=== PATIENT | male | born 1945 | race Caucasian/White ===

== ENCOUNTER → 2016-10-19 | Outpatient (CLI) | payer MEDICARE ==
[~2016-10-19] MED LIST: FENO145T13 PO; LISI-167 PO; MULT-26 PO; OMNIPAQUE 350 MG/ML, 100ML BOTTLE ONE; SIMV40TA3 PO; TAMS0.4C2 PO; VITAMIN D PO
== END | disposition home or self-care (01) ==
LOC: CFH 10:50
PROVIDERS: ATTEND Internal Medicine Hematology & Oncology
DX: R91.1 Solitary pulmonary nodule (principal); N62 Hypertrophy of breast; J43.2 Centrilobular emphysema; I70.0 Atherosclerosis of aorta; Z90.49 Acquired absence of other specified parts of digestive tract; Z85.048 Personal history of other malignant neoplasm of rectum, rectosigmoid junction, and anus
CPT/HCPCS: 71260; 74177; Q9967

== ENCOUNTER → 2017-10-19 | Outpatient (CLI) | payer MEDICARE ==
[~2017-10-19] MED LIST changes: -FENO145T13 PO; +FENO145T30 PO
== END ==
LOC: CFH 10:57
PROVIDERS: ATTEND Internal Medicine Hematology & Oncology
DX: C20 Malignant neoplasm of rectum (principal); I70.8 Atherosclerosis of other arteries; I70.0 Atherosclerosis of aorta; I77.811 Abdominal aortic ectasia; R91.1 Solitary pulmonary nodule; Z90.49 Acquired absence of other specified parts of digestive tract
CPT/HCPCS: 71260; 74177; Q9967

== ENCOUNTER → 2018-10-25 | Outpatient (CLI) | payer MEDICARE | END | disposition home or self-care (01) | LOC: CFH 08:19 | PROVIDERS: ATTEND Internal Medicine Hematology & Oncology | DX: C20 Malignant neoplasm of rectum (principal); R22.2 Localized swelling, mass and lump, trunk | CPT/HCPCS: 71260; 74177; Q9967 ==

== ENCOUNTER 2018-12-22 10:37 | Outpatient (CLI) | payer MEDICARE ==
[~2018-12-22 10:37] MED LIST changes: -OMNIPAQUE 350 MG/ML, 100ML BOTTLE ONE
[2018-12-22 11:55] LABS: BASOPHILS # (AUTO) 0.03 x10^3/uL (0-0.1); BASOPHILS % (AUTO) 1 % (0-1); EOSINOPHILS # (AUTO) 0.23 x10^3/uL (0-0.4); EOSINOPHILS % (AUTO) 4 % (1-7); LYMPHOCYTES # (AUTO) 1.23 x10^3/uL (1-3.4); LYMPHOCYTES % (AUTO) 21 % (22-44); MD NO; MEAN CORPUSCULAR HEMOGLOBIN 33.4 pg (27.5-34.5); MEAN CORPUSCULAR HGB CONC 33.6 g/dL (33.2-36.2); MEAN CORPUSCULAR VOLUME 99.4 fL (81-97); MEAN PLATELET VOLUME 9.9 fL (7.4-10.4); MONOCYTES # (AUTO) 0.46 x10^3/uL (0.2-0.8); MONOCYTES % (AUTO) 8 % (2-9); NEUTROPHILS # (AUTO) 3.93 x10^3/uL (1.8-6.8); NEUTROPHILS % (AUTO) 67 % (42-75); PLATELET COUNT 175 x10^3/uL (130-400); RED BLOOD COUNT 4.14 x10^6/uL (4.38-5.82); RED CELL DISTRIBUTION WIDTH 13.6 % (9.4-14.8)
[2018-12-22] MEDS ORDERED: B CO1TAB14 PO (12:02)
[2018-12-22] MEDS ORDERED: GEMF600T8 PO (12:02)
[2018-12-22] MEDS ORDERED: Ester C PO (12:02)
[2018-12-22] MEDS ORDERED: CLOP75TA PO (12:02)
[2018-12-22] MEDS ORDERED: UMEC1DIS IH (12:02)
[2018-12-22] MEDS ORDERED: CYAN25009 PO (12:02)
[2018-12-22] MEDS ORDERED: CHOL500015 PO (12:02)
[2018-12-22] MEDS ORDERED: ASPI-496 PO (12:02)
[2018-12-22] MEDS ORDERED: ALPH100C PO (12:02)
[2018-12-22] MEDS ORDERED: UBID100C41 PO (12:02)
[2018-12-22] MEDS ORDERED: ATOR40TA78 PO (12:02)
[2018-12-22] MEDS ORDERED: FOLI0.4T2 PO (12:02)
[2018-12-22] MEDS ORDERED: ACET500C7 PO (12:02)
[2018-12-22 12:08] LABS: ALBUMIN 3.7 g/dL (3.4-5.0); ANION GAP 4 mmol/L (5-15); CALCIUM 8.8 mg/dL (8.5-10.1); CHLORIDE 110 mmol/L (98-107)
[2018-12-22 12:16] LABS: ALANINE AMINOTRANSFERASE 22 U/L (12-78); ALKALINE PHOSPHATASE 67 U/L (45-117); BILIRUBIN,TOTAL 0.4 mg/dL (0.2-1.0); CREATININE 0.97 mg/dL (0.7-1.3)
== END 2018-12-22 23:59 | disposition home or self-care (01) ==
LOC: STAR 10:37
PROVIDERS: ATTEND Surgery Vascular Surgery
DX: Z01.818 Encounter for other preprocedural examination (principal); I65.22 Occlusion and stenosis of left carotid artery
CPT/HCPCS: 36415; 80053; 85025; 93005

== ENCOUNTER 2018-12-26 06:01 | Inpatient (IN) | payer MEDICARE ==
[~2018-12-26] VITALS: Ht 175.3 cm; Wt 84.5 kg
[2018-12-26 06:32] VITALS: BP 123/59
== END 2018-12-26 11:15 | disposition home or self-care (01) | DRG 983 ==
LOC: ORIP 06:01
PROVIDERS: ADMIT Surgery Vascular Surgery; ATTEND Surgery Vascular Surgery
PROC: 03JY0ZZ Inspection of Upper Artery, Open Approach (ICD-10-PCS; principal; 2018-12-26)
DX: I65.22 Occlusion and stenosis of left carotid artery (principal); J44.9 Chronic obstructive pulmonary disease, unspecified; Z86.73 Personal history of transient ischemic attack (TIA), and cerebral infarction without residual deficits; E78.00 Pure hypercholesterolemia, unspecified; I10 Essential (primary) hypertension; Z90.49 Acquired absence of other specified parts of digestive tract; Z82.49 Family history of ischemic heart disease and other diseases of the circulatory system; I73.9 Peripheral vascular disease, unspecified; Z85.048 Personal history of other malignant neoplasm of rectum, rectosigmoid junction, and anus
CPT/HCPCS: 36415; 86850; 86900; J0690; J1100; J1644; J2405; J2704; J2710; J2720; J3010; J0330; J2440; J7120

== ENCOUNTER → 2019-10-27 | Outpatient (CLI) | payer MEDICARE ==
[~2019-10-27] MED LIST changes: +ACET500C7 PO; +ALPH100C PO; +ASPI-496 PO; +ATOR40TA78 PO; +B CO1TAB14 PO; +CHOL500015 PO; +CLOP75TA PO; +CYAN25009 PO; +Ester C PO; +FENO145T19 PO; -FENO145T30 PO; +FOLI0.4T2 PO; +GEMF600T8 PO; +OMNIPAQUE 350 MG/ML, 100ML BOTTLE ONE; +SIMV40TA20 PO; -SIMV40TA3 PO; +UBID100C41 PO; +UMEC1DIS IH
== END | disposition home or self-care (01) ==
LOC: CFH 10:56
PROVIDERS: ATTEND Internal Medicine Hematology & Oncology
DX: C20 Malignant neoplasm of rectum (principal); C78.7 Secondary malignant neoplasm of liver and intrahepatic bile duct; C78.01 Secondary malignant neoplasm of right lung; J90 Pleural effusion, not elsewhere classified; J43.9 Emphysema, unspecified; R59.1 Generalized enlarged lymph nodes; M48.54XA Collapsed vertebra, not elsewhere classified, thoracic region, initial encounter for fracture; I25.10 Atherosclerotic heart disease of native coronary artery without angina pectoris; Z90.49 Acquired absence of other specified parts of digestive tract
CPT/HCPCS: 71260; 74177; Q9967

== ENCOUNTER 2019-11-04 10:51 | Observation (INO) | payer MEDICARE ==
[~2019-11-04] VITALS: Ht 177.8 cm; Wt 88.1 kg
[~2019-11-04 10:51] MED LIST changes: -OMNIPAQUE 350 MG/ML, 100ML BOTTLE ONE
[2019-11-04] MEDS ORDERED: SODIUM CHLORIDE FLUSH 10ML SYR IVF ONE (12:00)
[2019-11-04] MEDS ORDERED: LIDOCAINE 1%, 10ML ONE (12:16)
[2019-11-04 12:25] LABS: BASOPHILS # (AUTO) 0.01 x10^3/uL (0-0.1); BASOPHILS % (AUTO) 0 % (0-1); EOSINOPHILS # (AUTO) 0.05 x10^3/uL (0-0.4); EOSINOPHILS % (AUTO) 1 % (1-7); LYMPHOCYTES # (AUTO) 0.66 x10^3/uL (1-3.4); LYMPHOCYTES % (AUTO) 8 % (22-44); MD NO; MEAN CORPUSCULAR HEMOGLOBIN 32.8 pg (27.5-34.5); MEAN CORPUSCULAR HGB CONC 33.7 g/dL (33.2-36.2); MEAN CORPUSCULAR VOLUME 97.3 fL (81-97); MONOCYTES # (AUTO) 0.69 x10^3/uL (0.2-0.8); MONOCYTES % (AUTO) 9 % (2-9); NEUTROPHILS # (AUTO) 6.55 x10^3/uL (1.8-6.8); NEUTROPHILS % (AUTO) 82 % (42-75); PLATELET COUNT 309 x10^3/uL (130-400); RED BLOOD COUNT 4.45 x10^6/uL (4.38-5.82); RED CELL DISTRIBUTION WIDTH 12.6 % (9.4-14.8)
[2019-11-04 12:37] LABS: ALANINE AMINOTRANSFERASE 39 U/L (12-78); ALBUMIN 3.3 g/dL (3.4-5.0); ANION GAP 9 mmol/L (5-15); CALCIUM 8.7 mg/dL (8.5-10.1); CHLORIDE 93 mmol/L (98-107)
[2019-11-04 12:42] LABS: ALKALINE PHOSPHATASE 137 U/L (45-117); BILIRUBIN,TOTAL 0.6 mg/dL (0.2-1.0); TOTAL PROTEIN 7.3 g/dL (6.4-8.2); TROPONIN I 0.023 ng/mL (0.000-0.045)
--- NOTE | 2019-11-04 12:46 | NUR ---
PT TO ULTRASOUND FOR THORACENTESIS.
[2019-11-04] MEDS ORDERED: ONDANSETRON 2MG/ML, 2ML IVPush ONE (14:00)
[2019-11-04] MEDS ORDERED: HYDROmorphone 2 MG/ML, 1ML IVPush PRN (14:00)
--- NOTE | 2019-11-04 14:00 | NUR ---
PT BACK FROM IR. ?? AMT FLUID DRAINED. SITE IS COVERED WITH GAUZE AND TEGADERM. PT C/O PAIN. PROVIDER NOTIFIED.
[2019-11-04] MEDS ORDERED: HYDROmorphone 1 MG/ML, 1ML INJ ONE (14:27)
[2019-11-04] MEDS ORDERED: ONDANSETRON 2MG/ML, 2ML ONE (14:27)
--- NOTE | 2019-11-04 14:52 | NUR ---
Break RN note: Dr. York at bedside to evaluate pt for admission.
[2019-11-04] MEDS ORDERED: ENOXAPARIN 40 MG/0.4 ML SQ SCH (15:00)
[2019-11-04] MEDS ORDERED: ACETAMINOPHEN 325 MG TABLET PO PRN (15:00)
[2019-11-04] MEDS ORDERED: morphine SULFATE 10 MG/ML, 1ML IVPush PRN (15:00)
[2019-11-04 16:00] VITALS: BP 115/60
[2019-11-04 16:02] LABS: CELLS COUNTED 55
[2019-11-04] MEDS: OXYcodone/APAP 5/325MG TABLET PO PRN (19:13)
[2019-11-04 19:46] VITALS: BP 108/61
[2019-11-04] MEDS: LACTULOSE 10 GM/15 ML UDC PO SCH (20:50)
[2019-11-05] MEDS: OXYcodone/APAP 5/325MG TABLET PO PRN ×2 (01:11→09:03)
[2019-11-05 01:12] VITALS: BP 94/58
[2019-11-05 05:41] LABS: BASOPHILS # (AUTO) 0.01 x10^3/uL (0-0.1); BASOPHILS % (AUTO) 0 % (0-1); EOSINOPHILS # (AUTO) 0.08 x10^3/uL (0-0.4); EOSINOPHILS % (AUTO) 1 % (1-7); LYMPHOCYTES # (AUTO) 0.73 x10^3/uL (1-3.4); LYMPHOCYTES % (AUTO) 9 % (22-44); MD NO; MEAN CORPUSCULAR HEMOGLOBIN 32.6 pg (27.5-34.5); MEAN CORPUSCULAR HGB CONC 33.4 g/dL (33.2-36.2); MEAN CORPUSCULAR VOLUME 97.6 fL (81-97); MEAN PLATELET VOLUME 9.3 fL (7.4-10.4); MONOCYTES % (AUTO) 11 % (2-9); NEUTROPHILS # (AUTO) 6.54 x10^3/uL (1.8-6.8); NEUTROPHILS % (AUTO) 79 % (42-75); PLATELET COUNT 293 x10^3/uL (130-400); RED BLOOD COUNT 4.13 x10^6/uL (4.38-5.82); RED CELL DISTRIBUTION WIDTH 12.6 % (9.4-14.8)
[2019-11-05 05:53] LABS: ANION GAP 8 mmol/L (5-15); CALCIUM 8.5 mg/dL (8.5-10.1); CHLORIDE 93 mmol/L (98-107); CREATININE 1.03 mg/dL (0.7-1.3)
[2019-11-05] MEDS: LACTULOSE 10 GM/15 ML UDC PO SCH (08:59)
[2019-11-05 09:00] VITALS: BP 124/65
[2019-11-06] MEDS ORDERED: CLOP75TA52 PO (08:46)
[2019-11-06] MEDS ORDERED: ASPI-496 PO (08:46)
[2019-11-14] MEDS ORDERED: HYDR-3245 PO (06:57)
== END 2019-11-05 11:04 | disposition home or self-care (01) ==
LOC: ED 11:17 → EDIP 13:55 → INTOOBSV 13:55 → 3WST 15:26
PROVIDERS: ADMIT Family Medicine; ATTEND Internal Medicine Infectious Disease
DX: J91.0 Malignant pleural effusion (principal); R06.00 Dyspnea, unspecified; C34.90 Malignant neoplasm of unspecified part of unspecified bronchus or lung; C78.7 Secondary malignant neoplasm of liver and intrahepatic bile duct; I73.9 Peripheral vascular disease, unspecified; I65.29 Occlusion and stenosis of unspecified carotid artery; I10 Essential (primary) hypertension; R09.02 Hypoxemia; Z87.891 Personal history of nicotine dependence; Z79.01 Long term (current) use of anticoagulants
CPT/HCPCS: 32555; 36415; 71045; 80048; 80053; 83605; 84157; 84484; 85025; 87040; 88112; 88305; 88341; 88342; 89051; 93005; 96374; 96375; 99285; G0378; J1170; J2405; J3490; 83986

== ENCOUNTER 2019-11-06 07:56 | Day surgery (SDC) | payer MEDICARE ==
[~2019-11-06] VITALS: Ht 177.8 cm; Wt 86.2 kg
[2019-11-06] MEDS ORDERED: PLEASE ENTER HEIGHT AND WEIGHT MC SCH (08:30)
[2019-11-06 08:40] VITALS: BP 146/64
[2019-11-06] MEDS ORDERED: CLOP75TA52 PO (08:46)
[2019-11-06] MEDS ORDERED: ASPI-496 PO (08:46)
[2019-11-06] MEDS ORDERED: SODIUM CHLORIDE 0.9% 1,000 ML IV SCH (09:00)
[2019-11-06 09:23] LABS: INTERNATIONAL NORMALIZED RATIO 1.04 (0.93-1.1)
[2019-11-06] MEDS ORDERED: FENTANYL PF 100 MCG/2ML ONE (09:46)
[2019-11-06] MEDS ORDERED: MIDAZOLAM 1 MG/ML, 5ML ONE (09:46)
[2019-11-06] MEDS ORDERED: FLUMAZENIL 0.1 MG/1 ML, 5ML ONE (09:46)
[2019-11-06] MEDS ORDERED: NALOXONE 1 MG/ML, 2ML ONE (09:47)
[2019-11-14] MEDS ORDERED: HYDR-3245 PO (06:57)
== END 2019-11-06 11:40 | disposition home or self-care (01) ==
LOC: OUT 07:56 → EDSTATUS 10:00 → OUT 11:40
PROVIDERS: ATTEND Internal Medicine Hematology & Oncology
DX: R16.0 Hepatomegaly, not elsewhere classified (principal); C78.7 Secondary malignant neoplasm of liver and intrahepatic bile duct; C20 Malignant neoplasm of rectum; C78.01 Secondary malignant neoplasm of right lung; C78.1 Secondary malignant neoplasm of mediastinum; I10 Essential (primary) hypertension; Z79.02 Long term (current) use of antithrombotics/antiplatelets; E78.5 Hyperlipidemia, unspecified; Z79.82 Long term (current) use of aspirin; Z79.899 Other long term (current) drug therapy; Z87.891 Personal history of nicotine dependence; Z99.81 Dependence on supplemental oxygen; Z90.49 Acquired absence of other specified parts of digestive tract; Z95.5 Presence of coronary angioplasty implant and graft; Z98.890 Other specified postprocedural states
CPT/HCPCS: 36415; 47000; 77012; 85610; 88307; 99156; 99157; J2250; J3010; 88341; 88342; 88360; J2310

== ENCOUNTER 2019-11-07 10:40 | Outpatient (CLI) | payer MEDICARE ==
[~2019-11-07 10:40] MED LIST changes: +CLOP75TA52 PO
[2019-11-14] MEDS ORDERED: HYDR-3245 PO (06:57)
== END 2019-11-07 23:59 | disposition home or self-care (01) ==
LOC: RAD 10:40
PROVIDERS: ATTEND Internal Medicine Hematology & Oncology
DX: C20 Malignant neoplasm of rectum (principal); R22.2 Localized swelling, mass and lump, trunk
CPT/HCPCS: 78306; A9503

== ENCOUNTER → 2020-01-31 | Outpatient (CLI) | payer MEDICARE ==
[~2020-01-31] MED LIST changes: +CEFD300C37 PO; +DOXY100T PO; +HYDR-3245 PO; +LISI-170 PO; +OMNIPAQUE 350 MG/ML, 100ML BOTTLE ONE
== END | disposition home or self-care (01) ==
LOC: CFH 12:12
PROVIDERS: ATTEND Internal Medicine Hematology & Oncology
DX: C20 Malignant neoplasm of rectum (principal); C34.90 Malignant neoplasm of unspecified part of unspecified bronchus or lung; J91.0 Malignant pleural effusion; J43.9 Emphysema, unspecified; I70.8 Atherosclerosis of other arteries; Z90.49 Acquired absence of other specified parts of digestive tract
CPT/HCPCS: 71260; 74177; Q9967

== ENCOUNTER → 2020-02-21 | Outpatient (CLI) | payer MEDICARE ==
[~2020-02-21] MED LIST changes: -OMNIPAQUE 350 MG/ML, 100ML BOTTLE ONE
== END | disposition home or self-care (01) ==
LOC: RAD 11:03
PROVIDERS: ATTEND Internal Medicine Hematology & Oncology
DX: C20 Malignant neoplasm of rectum (principal); C34.90 Malignant neoplasm of unspecified part of unspecified bronchus or lung; J91.0 Malignant pleural effusion
CPT/HCPCS: 78306; A9503

== ENCOUNTER → 2020-04-23 | Outpatient (CLI) | payer MEDICARE | END | disposition home or self-care (01) | LOC: RAD 10:33 | PROVIDERS: ATTEND Internal Medicine Hematology & Oncology | DX: C20 Malignant neoplasm of rectum (principal); C34.90 Malignant neoplasm of unspecified part of unspecified bronchus or lung; J91.0 Malignant pleural effusion | CPT/HCPCS: 78306; A9503 ==